=== PATIENT | male | born 1985 | race Native Hawaiian/Other Pacific Islander ===

== ENCOUNTER 2016-10-20 02:16 | Inpatient (IN) | payer OTHER ==
[2016-10-20 03:31] LABS: Hematocrit 49 % (42-52); Hemoglobin 16.7 g/dl (14.0-18.0); Mean Corpuscular HGB Conc 34 g/dl (31-36); Mean Corpuscular Hemoglobin 30 pg (27-31); Mean Corpuscular Volume 88 fL (80-94); Mean Platelet Volume 8 um3 (7.4-10.4); Red Blood Count 5.61 10^6/ul (4.0-5.4); Red Cell Distribution Width 12 % (10.5-15); White Blood Count 14.1 10^3/ul (3.5-10.8)
[2016-10-20 03:47] LABS: ALT 19 U/L (7-52); AST 30 U/L (13-39); Albumin 4.6 g/dL (3.2-5.2); Alkaline Phosphatase 62 U/L (34-104); Anion Gap 7 mmol/L (2-11); BUN/Creatinine Ratio 9.6 (8-20); Blood Urea Nitrogen 9 mg/dL (6-24); CO2 Carbon Dioxide 30 mmol/L (22-32); Calcium 9.4 mg/dL (8.6-10.3); Chloride 99 mmol/L (101-111); EGFR African American 118.9 (>60); EGFR Non-African American 92.4 (>60); Globulin 3.1 g/dL (2-4); Glucose 100 mg/dL (70-100); Potassium 3.9 mmol/L (3.5-5.0); Sodium 136 mmol/L (133-145); Total Protein 7.7 g/dL (6.4-8.9)
[2016-10-20 03:52] LABS: Acetaminophen < 15 mcg/mL; Alcohol < 10 mg/dL (<10); Salicylate < 2.50 mg/dL (<30)
[2016-10-20 04:02] LABS: TSH (Thyroid Stimulating Horm) 1.33 mcIU/mL (0.34-5.60)
[2016-10-20] MEDS ORDERED: Nicotine Inhaler* 10 MG AMP INH PRN ×2 (05:10→08:39)
[2016-10-20] MEDS ORDERED: Mouth Piece, Nicotine* 1 EACH CARTRIDGE INH PRN (05:11)
[2016-10-20] MEDS ORDERED: Nicotine Inhaler* 10 MG AMP ONE (05:15)
[2016-10-20] MEDS ORDERED: Mouth Piece, Nicotine* 1 EACH CARTRIDGE ONE (05:16)
[2016-10-20 05:31] LABS: Urine Bilirubin Negative (Negative); Urine Glucose Negative (Negative); Urine Nitrite Negative (Negative)
[2016-10-20 05:47] LABS: Benzodiazepine Urine Screen None Detected (None Detect)
--- NOTE | 2016-10-20 05:51 | ED ---
Giuseppe Martinez Rebecca, scribed for Jani Nicole MD on 10/20/16 at 0233 . Psychiatric Complaint - HPI Summary HPI Summary: Pt is a 31 y/o M who presents to ED with a CC of suicidal idealizations and depression. SI began gradually tonight and have been constant since onset. Current psychiatric sx aggravated by PTSD, alleviated by nothing. Denies any other sx, including any pain. Reports marijuana use today, denies any alcohol use. PMHx depression - History Of Current Complaint Chief Complaint: EDMentalHealth Time Seen by Provider: 10/20/16 02:26 Hx Obtained From: Patient Onset/Duration: Gradual Onset, Still Present Severity Initially: Mild Severity Currently: Mild Character: Depressed Aggravating Factor(s): Other - PTSD Alleviating Factor(s): Nothing Associated Signs And Symptoms: Positive: Negative Has Suicidal: Reports: Thoughts Ingestion History: Type/Name Of Drug - Marijuana - Allergies/Home Medications Allergies/Adverse Reactions: Allergies Allergy/AdvReac Type Severity Reaction Status Date / Time No Known Allergies Allergy Verified 10/20/16 02:28 PMH/Surg Hx/FS Hx/Imm Hx Cardiovascular History: Reports: Hx Hypertension Psychiatric History: Reports: Hx Depression, Hx Post Traumatic Stress Disorder, Other Psychiatric Issues/Disorders - Hx Insomnia Infectious Disease History: No Infectious Disease History: Denies: Traveled Outside the [place] in Last 30 Days - Family History Known Family History: Positive: Hypertension - Social History Alcohol Use: Weekly Substance Use Type: Reports: Marijuana Smoking Status (MU): Light Every Day Tobacco Smoker Review of Systems Negative: Arthralgia Positive: Depressed, Other - Suicidal idealizations All Other Systems Reviewed And Are Negative: Yes Physical Exam Triage Information Reviewed: Yes Vital Signs On Initial Exam: Initial Vitals Temp Pulse Resp BP Pulse Ox 98.3 F 95 18 159/100 98 10/20/16 02:27 10/20/16 02:27 10/20/16 02:27 10/20/16 02:27 10/20/16 02:27 Vital Signs Reviewed: Yes Appearance: Positive: Well-Appearing, No Pain Distress Skin: Positive: Warm, Skin Color Reflects Adequate Perfusion, Dry Eyes: Positive: EOMI, JOE ENT: Positive: Normal ENT inspection Neck: Positive: Supple, Nontender Respiratory/Lung Sounds: Positive: Clear to Auscultation, Breath Sounds Present Cardiovascular: Positive: RRR Musculoskeletal: Positive: Normal, Strength/ROM Intact Neurological: Positive: Normal, Sensory/Motor Intact, Alert, Oriented to Person Place, Time Psychiatric: Positive: Depressed Diagnostics - Vital Signs Vital Signs Temp Pulse Resp BP Pulse Ox 10/20/16 02:27 98.3 F 95 18 159/100 98 - Laboratory Lab Results: Lab Results 10/20/16 10/20/16 10/20/16 Range/Units 03:00 03:00 05:20 WBC 14.1 H (3.5-10.8) 10^3/ul RBC 5.61 H (4.0-5.4) 10^6/ul Hgb 16.7 (14.0-18.0) g/dl Hct 49 (42-52) % MCV 88 (80-94) fL MCH 30 (27-31) pg MCHC 34 (31-36) g/dl RDW 12 (10.5-15) % Plt Count 330 (150-450) 10^3/ul MPV 8 (7.4-10.4) um3 Neut % (Auto) 67.4 (38-83) % Lymph % (Auto) 19.2 L (25-47) % [place] % (Auto) 7.5 (1-9) % Eos % (Auto) 5.3 (0-6) % Baso % (Auto) 0.6 (0-2) % Absolute Neuts (auto) 9.5 H (1.5-7.7) 10^3/ul Absolute Lymphs (auto) 2.7 (1.0-4.8) 10^3/ul Absolute Monos (auto) 1.0 H (0-0.8) 10^3/ul Absolute Eos (auto) 0.8 H (0-0.6) 10^3/ul Absolute Basos (auto) 0.1 (0-0.2) 10^3/ul Absolute Nucleated RBC 0.01 10^3/ul Nucleated RBC % 0 Sodium 136 (133-145) mmol/L Potassium 3.9 (3.5-5.0) mmol/L Chloride 99 L (101-111) mmol/L Carbon Dioxide 30 (22-32) mmol/L Anion Gap 7 (2-11) mmol/L BUN 9 (6-24) mg/dL Creatinine 0.94 (0.67-1.17) mg/dL Est GFR ( Amer) 118.9 (>60) Est GFR (Non-Af Amer) 92.4 (>60) BUN/Creatinine Ratio 9.6 (8-20) Glucose 100 (70-100) mg/dL Calcium 9.4 (8.6-10.3) mg/dL Total Bilirubin 0.50 (0.2-1.0) mg/dL AST 30 (13-39) U/L ALT 19 (7-52) U/L Alkaline Phosphatase 62 (34-104) U/L Total Protein 7.7 (6.4-8.9) g/dL Albumin 4.6 (3.2-5.2) g/dL Globulin 3.1 (2-4) g/dL Albumin/Globulin Ratio 1.5 (1-3) TSH 1.33 (0.34-5.60) mcIU/mL Urine Color Yellow Urine Appearance Clear Urine pH 6.0 (5-9) Ur Specific [place] 1.014 (1.010-1.030) Urine Protein Negative (Negative) Urine Ketones Trace H (Negative) Urine Blood Negative (Negative) Urine Nitrate Negative (Negative) Urine Bilirubin Negative (Negative) Urine Urobilinogen Negative (Negative) Ur Leukocyte Esterase Negative (Negative) Urine Glucose Negative (Negative) Salicylates < 2.50 (<30) mg/dL Urine Opiates Screen (None Detect) Acetaminophen < 15 mcg/mL Ur Barbiturates Screen (None Detect) Ur Phencyclidine Scrn (None Detect) Ur Amphetamines Screen (None Detect) U Benzodiazepines Scrn (None Detect) Urine Cocaine Screen (None Detect) U Cannabinoids Screen (None Detect) Serum Alcohol < 10 (<10) mg/dL 10/20/16 Range/Units 05:20 WBC (3.5-10.8) 10^3/ul RBC (4.0-5.4) 10^6/ul Hgb (14.0-18.0) g/dl Hct (42-52) % MCV (80-94) fL MCH (27-31) pg MCHC (31-36) g/dl RDW (10.5-15) % Plt Count (150-450) 10^3/ul MPV (7.4-10.4) um3 Neut % (Auto) (38-83) % Lymph % (Auto) (25-47) % [place] % (Auto) (1-9) % Eos % (Auto) (0-6) % Baso % (Auto) (0-2) % Absolute Neuts (auto) (1.5-7.7) 10^3/ul Absolute Lymphs (auto) (1.0-4.8) 10^3/ul Absolute Monos (auto) (0-0.8) 10^3/ul Absolute Eos (auto) (0-0.6) 10^3/ul Absolute Basos (auto) (0-0.2) 10^3/ul Absolute Nucleated RBC 10^3/ul Nucleated RBC % Sodium (133-145) mmol/L Potassium (3.5-5.0) mmol/L Chloride (101-111) mmol/L Carbon Dioxide (22-32) mmol/L Anion Gap (2-11) mmol/L BUN (6-24) mg/dL Creatinine (0.67-1.17) mg/dL Est GFR ( Amer) (>60) Est GFR (Non-Af Amer) (>60) BUN/Creatinine Ratio (8-20) Glucose (70-100) mg/dL Calcium (8.6-10.3) mg/dL Total Bilirubin (0.2-1.0) mg/dL AST (13-39) U/L ALT (7-52) U/L Alkaline Phosphatase (34-104) U/L Total Protein (6.4-8.9) g/dL Albumin (3.2-5.2) g/dL Globulin (2-4) g/dL Albumin/Globulin Ratio (1-3) TSH (0.34-5.60) mcIU/mL Urine Color Urine Appearance Urine pH (5-9) Ur Specific [place] (1.010-1.030) Urine Protein (Negative) Urine Ketones (Negative) Urine Blood (Negative) Urine Nitrate (Negative) Urine Bilirubin (Negative) Urine Urobilinogen (Negative) Ur Leukocyte Esterase (Negative) Urine Glucose (Negative) Salicylates (<30) mg/dL Urine Opiates Screen None detected (None Detect) Acetaminophen mcg/mL Ur Barbiturates Screen None detected (None Detect) Ur Phencyclidine Scrn None detected (None Detect) Ur Amphetamines Screen None detected (None Detect) U Benzodiazepines Scrn None detected (None Detect) Urine Cocaine Screen None detected (None Detect) U Cannabinoids Screen Presumptive positive H (None Detect) Serum Alcohol (<10) mg/dL Result Diagrams: 10/20/16 03:00 10/20/16 03:00 Lab Statement: Any lab studies that have been ordered have been reviewed, and results considered in the medical decision making process. Re-Evaluation - Re-Evaluation First Eval Re-Evaluation Time: 05:10 Change: Unchanged Course/Dx - Course Course Of Treatment: Pt is medically cleared for MHE at 0309. Pt will be admitted at 0550. Assessment/Plan: ADMIT MHU STABLE - Differential Dx/Clinical Impression Provider Diagnosis: Mental health problem Discharge - Discharge Plan Condition: Stable [place] [place]: No Primary Care Phys,NOPCP [Primary Care Provider] - The documentation as recorded by the Giuseppe shipley Rebecca accurately reflects the service I personally performed and the decisions made by me, Jani Nicole MD.
[2016-10-20] MEDS ORDERED: Mouth Piece, Nicotine* 1 EACH CARTRIDGE INH ONE (07:00)
[2016-10-20] MEDS ORDERED: Al Hydrox/Mg Hydrox/Simet LIQ* 30 ML UDC PO PRN (08:39)
[2016-10-20] MEDS ORDERED: Acetaminophen TAB* 325 MG PO PRN (08:39)
[2016-10-20] MEDS ORDERED: Mouth Piece, Nicotine* 1 EACH CARTRIDGE INH SCH (08:39)
[2016-10-20] MEDS: Nicotine GUM* 2 MG PO PRN (09:05)
[2016-10-20] MEDS: Vitamin THERAPEUTIC TAB PO SCH (09:05)
[2016-10-20] MEDS: Nicotine PATCH 21 MG/24 HR* PATCH TRANSDERM SCH (09:06)
--- NOTE | 2016-10-20 14:08 | ADMNOTE ---
Identification - Identify Employment Status: Employed Hx Psychiatric Hospitalization: Yes - 5 prior hospitalizations Arrived to Hospital Via: Ambulatory History - Objective HPI: 31 y/o [place] unknown to this facility brought self in seeking admission due to overwhelming depression and sadness for few weeks. He has a h/o 5 hospitalizations for the same reason. Says he feels sad, cries a lot, tired, unmotivated, helpless and guilty. Thought about suicide when severely depressed in the past. Denies current suicidal or homicidal thoughts. Also denies hallucinations/or paranoia. His 37y/o sister who he was close from cancer in recent past. after 7 y/o marriage. Has a 4 y/o son. Past Medical History: None Lab Results: Unremarkable. Radiology Results: None ordered. Exam Appearance: Healthy Appearing Hygiene: Normal Grooming: Fairly Well Kept Psychomotor Activities: Normal Exhibits Abnormal Movement: No Attitude and Relatedness: Appropriate Eye Contact: Poor - Speech Quality: Unpressured Latencies: Normal Quantity: Appropriate Patient's Decription of Mood: "Sad" Observed Affect: Depressed Affect Consistent with: Dysphoria Patient's Thought Process: Coherent, Goal Directed Thought Content: No Passive Wish, No Suicidal Planning, No Homicidal Ideation, No Paranoid Ideation Experiencing Hallucinations: No, Sensorium is Clear Type of Hallucinations: Visual: No, Auditory: No, Command: No Level of Consciousness: Alert Orientation: Yes Intact, Yes Orientated to Time, Yes Orientated to Place, Yes Orientated to Person Impulse Control: Intact Insight and Judgement: Fair Impression - Impression Clinical Impression: 31 y/o WM with known h/o 5 hospitalizations presents in the context of worsening of depressive symptoms for the last few weeks in the context of treatment noncomplience anf occational drinking and smoking Cannabis. - [place] Mental Illness: MDD, recurrent, severe w/o psychosis. R/o substance induced mood d/o - [place] Medical Illness: None Plan - Treatment Plan Continued Medication Management: Start Medication Medications: Current Medications Acetaminophen (Tylenol Tab*) 650 mg PO Q4H PRN PRN Reason: PAIN or TEMP > 101 F Al Hydrox/Mg Hydrox/Simethicone (Maalox Plus*) 30 ml PO Q4H PRN PRN Reason: INDIGESTION Device (Nicotine Mouth Piece*) 1 each INH .CARTRIDGE CHERI Multivitamins (Theragran Tab*) 1 tab PO DAILY [facility] Last Admin: 10/20/16 09:05 Dose: 1 tab Nicotine (Nicotine Inhaler*) 10 mg INH Q2H PRN PRN Reason: CRAVING Last Admin: 10/20/16 05:17 Dose: 10 mg Nicotine (Nicotine Inhaler*) 10 mg INH Q2H PRN PRN Reason: CRAVING Nicotine (Nicotine Patch 21 Mg/24 Hr*) 1 patch TRANSDERM DAILY [facility] Last Admin: 10/20/16 09:06 Dose: Not Given Nicotine Polacrilex (Nicotine Gum*) 2 mg PO Q2H PRN PRN Reason: CRAVING Last Admin: 10/20/16 09:05 Dose: 2 mg Pharmacy Profile Note (Nicotine Patch Removal Note*) 1 note PATCH OFF 2099 [facility] - Discharge Plan Discharge Plan: Outpatient Follow Up Outpatient Program: [facility]
[2016-10-20] MEDS: Sertraline* 25 MG TAB PO SCH (17:07)
--- NOTE | 2016-10-20 19:58 | HP ---
HISTORY AND PHYSICAL: DATE OF ADMISSION: 10/20/16 IDENTIFYING DATA: Jani is a 31-year-old , employed male, who brought himself to the emergency department asking for admission due to worsening of his depression. CHIEF COMPLAINT: "I am just going down the same path, which made me suicidal in the past." HISTORY OF PRESENT ILLNESS: Jani who likes to be called Corona, reports today that for the last few weeks his depressive symptoms and anxiety has been worsening progressively to a point that he did not feel safe at home and decided to check himself in. This is one of his 6th psychiatric hospitalizations on psychiatric floor and the first one at [facility]. Corona reports that he has been feeling sad all the time, not enjoying anything in his life anymore, worried all the time about everything in his life including of his 37-year-old sister in recent past, also about his mother who left the [facility] to go to [place] to live with his niece. He also worries about too many other things that he is unwilling to talk about at this time. He feels tired, unmotivated, helpless and guilty. However, he was not able to explain why he feels guilty. He notes that in the past when he felt that way, he thought about suicide. There were times that when his depression was deep and down in the dumps. He heard stuff that was unusual for him but he would not characterize those as auditory or visual hallucinations. His doctors in the past tried Abilify to control those experiences. He did not like Abilify or any kind of antipsychotics at that time. PAST PSYCHIATRIC HISTORY: As mentioned in HPI, he was hospitalized 5 times prior to this hospitalization in different hospitals including [facility]. He reports of trying different psychotropic medications including Abilify in the past. He is not on any medications at this time, does not have any providers for his mental health or physical health. PAST MEDICAL HISTORY: Unremarkable. ALLERGIES: No known drug allergies. FAMILY HISTORY: He had a sister who was 4 years older than him and she of some unknown cancer in recent past. His parents are . Father lives somewhere in [place] and mother lives in [place]. He denies any family history of mental illness. PERSONAL AND SOCIAL HISTORY: Corona reports that he has a bachelors in accounting and is currently employed in [employer]. He lives with a housemate and happy over where he lives. He was for 7 years and has a 4-year-old son. Now . He pays child support and does not show much interest about his son. He was an active member in [employer], honorably discharged as a master sergeant. He does have VA benefits; however, he is reluctant to use them. 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 Denies any symptoms reminiscent of PTSD. No legal problems other than parking tickets. PHYSICAL EXAMINATION Physical exam was offered, he declined saying that he is perfectly healthy. I have reviewed his physical done in the emergency department, which is unremarkable. GENERAL: He does not appear to be in any kind of physical distress at this time. VITAL SIGNS: This morning, his vitals show a temperature of 98.3, pulse rate 95 , respiratory rate 18, O2 sat 98%, blood pressure 159/100; this was at 2 a.m. in the morning. At 9 a.m. in the morning, temperature 98.2, pulse rate 71, respiratory rate 16, blood pressure 144/79. MENTAL STATUS EXAMINATION: Coroan is an average height, average weight healthy- appearing young male, who is alert and oriented to time, place and person. His personal hygiene and grooming appears to be within normal limits. His speech is normal in all spheres. Makes poor eye contact, mostly tearful during the interview. He describes his mood as depressed and sad. His observed affect appears to be dysphoric and tearful. Intelligence appears to be average as evidenced by his vocabulary and fund of knowledge and educational background. Thought processes are logical and goal-directed. Thought content is devoid of any delusions or obsessions. Denies any current suicidal or homicidal thoughts. Memory function appears to be normal in all spheres. Insight and judgment intact. LABORATORY DATA: Included CBC with differential, chemistry, urinalysis and urine tox screen and serum tox screen. WBC count 14.1, hemoglobin 16.7, hematocrit 49, platelet count 330; differential count shows a lymphocyte percentage of 19.2, absolute neutrophil count 9.5 and rest of the reports are unremarkable. Chemistry shows sodium of 136, potassium 3.9, chloride 99, carbon dioxide 30, glucose 100, GFR (-Sierra [place]an) 118.9, GFR (non-- [place]) 92.4. Rest of the reports within normal limits. Urinalysis is unremarkable with trace ketone. Toxicology shows a salicylate level less than 2.5, acetaminophen level less than 15, serum alcohol less than 10. Urine cannabinoids screen shows a positive report. SUMMARY: This is a 31-year-old honorably discharged [employer] , who brought himself to the emergency department asking for help for severe depression. He has been depressed off and on sporadically for some time and is not on any kind of active treatment. He has a history of smoking marijuana on a daily basis and drinking a couple of times every week a few drinks each time. MENTAL HEALTH DIAGNOSIS: Depressive disorder, NOS; rule out major depressive disorder; rule out substance-induced mood disorder. PHYSICAL HEALTH DIAGNOSIS: None. TREATMENT PLANS: Corona will remain hospitalized for his safety, diagnostic clarification, as well as treatment if needed. While admitted, his code status will remain active and full. Supportive, milieu, individual, and group therapy will be offered. Different psychotherapeutic and psychopharmacological options were offered with the risks, benefits and alternatives. Corona is reluctant to try; however, finally he decided to try Zoloft and I am going to prescribe him 25 mg of Zoloft at bedtime beginning tonight. If he can tolerate, his assigned attending can adjust the doses as he tolerates, and I will defer rest of the treatment to his attending on the unit. [id number]/CPS #: [id number] MTDD
[2016-10-20] MEDS: Nicotine Patch Removal NOTE PATCH OFF SCH (20:28)
[2016-10-21] MEDS: Sertraline* 25 MG TAB PO SCH (09:12)
[2016-10-21] MEDS: Vitamin THERAPEUTIC TAB PO SCH (09:12)
[2016-10-21] MEDS: Nicotine GUM* 2 MG PO PRN ×2 (10:16→15:08)
[2016-10-21] MEDS: Nicotine PATCH 21 MG/24 HR* PATCH TRANSDERM SCH (14:25)
--- NOTE | 2016-10-21 15:00 | PN ---
Subjective - Subjective Service Type: 87100 Hosp care 15 min low complexity Subjective: Pepito reports feeling safe for discharge home, although he refuses a trial of an antidepressant. Oddly, though pleasant throughout, he was also unpleasantly flatulent throughout, at one point loudly. Objective - Appearance Appearance: Well Developed/Nourished Dysmorphic Features: No Hygiene: Normal Grooming: Well Kept - Behavior Psychomotor Activities: Normal Exhibits Abnormal Movement: No - Attitude and Relatedness Attitude and Relatedness: Superficially Cooperative Eye Contact: Fair - Speech Quality: Unpressured Latencies: Normal Quantity: Appropriate - Mood Patient's Decription of Mood: "Fine" - Affect Observed Affect: Fair Affect Consistent with: Euthymia - Thought Process Patient's Thought Process: Coherent, Goal Directed Thought Content: No Passive Wish, No Suicidal Planning, No Homicidal Ideation, No Paranoid Ideation - Sensorium Experiencing Hallucinations: No, Sensorium is Clear Type of Hallucinations: Visual: No, Auditory: No, Command: No - Level of Consciousness Level of Consciousness: Alert Orientation: Yes Intact, Yes Orientated to Time, Yes Orientated to Place, Yes Orientated to Person - Impulse Control Impulse Control: Intact - Insight and Judgement Insight and Judgement: Poor - Group Participation Particating in Group Activities: Yes Group Participation Comments: but few - Medication Management Medication Management Adherence: Partial - refusing Zoloft Assessment - Assessment Merits Inpatient Hospitalization: For Stabilization, Consolidate Improvements, For Discharge Planning Inpatient DSM-IV Dx: Depressive disorder not otherwise specified, r/o MDD, r/o substance induced mood disorder Clinical Impression: Mr Grullon has been admitted for severe depression, but without active safety concerns. He refuses a trial of antidepressant. He seeks discharge now. He is agreeable to referral to [facility]. He also may benefit from cessation of marijuana and alcohol misuse. Plan - Plan Treatment Plan: Name: PEPITO GRULLON Birthdate: 1985 [id number] Prepare for discharge tomorrow to f/u at [facility]. Continue to offer meds. Monitor MS. Medications: Current Medications Acetaminophen (Tylenol Tab*) 650 mg PO Q4H PRN PRN Reason: PAIN or TEMP > 101 F Al Hydrox/Mg Hydrox/Simethicone (Maalox Plus*) 30 ml PO Q4H PRN PRN Reason: INDIGESTION Device (Nicotine Mouth Piece*) 1 each INH .CARTRIDGE CHERI Multivitamins (Theragran Tab*) 1 tab PO DAILY [facility] Last Admin: 10/21/16 09:12 Dose: 1 tab Nicotine (Nicotine Inhaler*) 10 mg INH Q2H PRN PRN Reason: CRAVING Last Admin: 10/20/16 05:17 Dose: 10 mg Nicotine (Nicotine Inhaler*) 10 mg INH Q2H PRN PRN Reason: CRAVING Nicotine (Nicotine Patch 21 Mg/24 Hr*) 1 patch TRANSDERM DAILY [facility] Last Admin: 10/21/16 14:25 Dose: Not Given Nicotine Polacrilex (Nicotine Gum*) 2 mg PO Q2H PRN PRN Reason: CRAVING Last Admin: 10/21/16 10:16 Dose: 2 mg Pharmacy Profile Note (Nicotine Patch Removal Note*) 1 note PATCH OFF 2100 [facility] Last Admin: 10/20/16 20:28 Dose: Not Given Sertraline HCl (Zoloft*) 25 mg PO DAILY [facility] Last Admin: 10/21/16 09:12 Dose: 25 mg - Discharge Plan Discharge Plan: Outpatient Follow Up Outpatient Program: [facility]
[2016-10-21] MEDS: Nicotine Patch Removal NOTE PATCH OFF SCH (20:07)
[2016-10-21] MEDS: chlorproMAZINE TAB* 25 MG ONE ×2 (22:11→22:13)
[2016-10-21] MEDS: chlorproMAZINE TAB* 100 MG PO PRN (22:13)
[2016-10-22] MEDS: Nicotine PATCH 21 MG/24 HR* PATCH TRANSDERM SCH (07:29)
[2016-10-22] MEDS: Sertraline* 25 MG TAB PO SCH (07:29)
[2016-10-22 07:32] VITALS: BP 124/74
[2016-10-22] MEDS: Vitamin THERAPEUTIC TAB PO SCH (07:32)
[2016-10-22] MEDS: Nicotine GUM* 2 MG PO PRN ×3 (07:32→13:15)
[2016-10-22] MEDS: chlorproMAZINE TAB* 100 MG PO PRN ×2 (07:32→13:15)
--- NOTE | 2016-10-22 16:41 | CONS ---
PSYCHOLOGICAL REPORT: DATE: 10/22/2016. REASON FOR REFERRAL: Jani was referred for psychological testing in order to help with diagnostic interest with concerns regarding possible psychotic range thought disorder. Evaluation was also conducted as a means to assist in assessing lethality concerns as Jani describes having recurrent suicidal thoughts of late and this is his now sixth psychiatric inpatient admission. TEST ADMINISTERED: Corona completed the [place] Multiphasic Personality Inventory - 2 (MMPI - 2). He was given individual feedback regarding testing results shortly after completion. BEHAVIORAL OBSERVATIONS: Jani currently presents with fair affect that varies appropriately with conversation. 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 He describes the work as being fairly easy for him and he seems to enjoy his work. He describes daily marijuana use, often smoking up to 3 or 4 times daily including in the mornings. He also describes using alcohol, although he does not report problematic use, at least in his personal perception thereof. He describes drinking a few times a week, but does not apparently experience any dysfunction in regards to work function. He was for 7 years and has a 4 -year-old son with both his ex- and son living in [place], [place]. He describes having regular contact with them, but he reports his access varies on her mood in terms being able to spend time with his son. He reports providing child support. He also was a sergeant in the for 6 years. He describes his experience overall as being "fun" and denied any residual symptomatology consistent with post- traumatic stress problems, as he was not in active combat. He describes hoping to settle in the [facility] and is keen to establish outpatient treatment at this point in time in order to establish access to medications and in providing individual supportive psychotherapy. He impresses as having good insight regarding the importance of engaging in followup care and in being compliant with recommended medications. TEST RESULTS: Jani provides a moderately distressed profile on this administration of the MMPI-2 having elevated the FB scale in a moderate fashion (T=85). He also scores very lowly on the emotional coping, self-esteem scales ( T=35 and 30 respectively). He subsequently elevates 8 of the clinical indices with more profound elevations occurring on the psychoticism scales including paranoia, psychasthenia, and schizophrenia (T=85 to 75 respectively). Of particular interest, he also elevates the hypomania scale to a minimal degree (T =65). He also elevates the neurotic triad (depression=72). Persons who elevate the neurotic triad tend to have difficulty in regards to insight in terms of how to manage negative emotions, instead using propensity towards utilizing repression as a primary emotional coping defense and who may exhibit physical duress consistent with recurrent headaches or other endorsement of physical elements when under emotional duress. Of particular clinical concern is an elevation on hypomania scale, as Jani describes having periods of insomnia characterized by encroaching cognitive symptoms, mostly consistent with paranoia. He describes as though feeling people are watching him or evaluating him which often leads to increased alcohol and marijuana use which in the end tends to exacerbate depressive symptomatology. He acknowledges this as a recurrent historical pattern for him, but appears not to have been treated for mood instability. He describes having utilized an atypical antipsychotic prior, but how that left him with cognitive dulling and feeling lethargic. Since he has an aversion to utilizing medications other than benzodiazepines and /or antidepressants, further treatment should continue to evaluate for possible bipolar- 2 symptomatology which may describe his apparent escalating historical problems which tend towards psychotic range disturbance characterized by paranoia. Discussion with Jani addressed access to different outpatient systems. Presently, he is inclined to attend treatment through [facility] rather than continue to pursue treatments through the [place], although he remains open [facility]. Currently, he impresses as being focused on obtaining discharge and indeed is future oriented , describing his interest in returning to work and returning to the comfort of his home. Ongoing treatment should further assess and try to effectively treat those poor self-esteem as this appears to be an enduring feature of his difficulties. Corona describes having feelings of inferiority since he was a young child and that these perceptions are recurrent when he is not well. Other interventions may hopefully more productively address his lifestyle choices including daily use of marijuana in hopes that he can draw better conclusions about how this may destabilize his thought processes and subsequent emotional decompensation. Major depressive disorder, recurrent, with psychotic features impress as current diagnosis with rule out being that of a bipolar-2 disorder. [id number]/[facility] #: [id number] ALEE
--- NOTE | 2016-10-22 16:48 | DS ---
Subjective - Subjective Service Types: [id number] [facility] Day Mgmt simple under 30 min Discharge Date: 10/22/16 Subjective: Jani reports today feeling safe and ready for discharge. He does not want to start a regular antidepressant medication, but does ask to have available a few doses of the thorazine that he took while here for agitation/anxiety. He denies any dangerous intent or plan at any time during this admission, saying now that he only said he had SI in order to be admitted and get care immediately. He denies any hallucinations and shows no signs of delusions. 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 Objective - Appearance Appearance: Healthy Appearing Dysmorphic Features: No Hygiene: Normal Grooming: Well Kept - Behavior Psychomotor Activities: Normal Exhibits Abnormal Movement: No - Attitude and Relatedness Attitude and Relatedness: Cooperative Eye Contact: Good - Speech Quality: Unpressured Latencies: Normal Quantity: Appropriate - Mood Patient's Decription of Mood: "Good" - Affect Observed Affect: Good Affect Consistent with: Euthymia - Thought Process Patient's Thought Process: Coherent, Goal Directed Thought Content: Yes Paranoid Ideation - as hypervigilance related to [employer] training, No Passive Wish, No Suicidal Planning, No Homicidal Ideation - Sensorium Experiencing Hallucinations: No, Sensorium is Clear Type of Hallucinations: Visual: No, Auditory: No, Command: No - Level of Consciousness Level of Consciousness: Alert Orientation: Yes Intact, Yes Orientated to Time, Yes Orientated to Place, Yes Orientated to Person - Impulse Control Impulse Control: Intact - Insight and Judgement Insight and Judgement: Fair - Group Participation Particating in Group Activities: No - Medication Management Medication Management Adherence: Partial Treatment Course & Assessment Clinical Course & Impression: Mr Lara has been admitted for severe depression, but without active safety concerns. He refuses a trial of antidepressant. He seeks discharge now. He is agreeable to referral to [facility]. He also may benefit from cessation of marijuana and alcohol misuse. 1.4.17 Per Mr Lara's report of having malingered SI in order to gain admission , and never having actually had intent toward suicide, only passing thoughts, he is assessed as at no acute risk of harm to self. He also denies any intent or plan to harm others. He denies any psychotic experience, only hypervigilance. MMPI suggested with elevated hypomania scale the possibility of bipolar disorder, but his report to me is that he has not had a constellation of manic symptoms in the past sufficient to support a diagnosis of bipolar disorder. His friend Yasmin met with me today when she was visiting Corona. She says she has no concerns for his safety if discharged. Corona refused our request to speak with his father because he did not want to bother him because he is old and might be too negatively affected by hearing about his son' s problems. Corona did not engage in groups. He did not try the antidepressant that was ordered for him. He did report good effect of the thorazine that was ordered for his complaint of agitation and anxiety last night by the on-call doctor, and did ask to continue that med. Mr Lara is cleared for discharge. He is assessed as at no acutely increased risk of harm to self or others and capable of adequate self-care to avoid harm. Although he has refused antidepressant trial and did not attend groups here, he was pleasant and in behavioral control throughout. MMPI did not indicate any signs of dangerousness, which matched with Dr Crandall's impression of him as safe for discharge as well. He does say that he is committed to aftercare at [facility], where he will have an intake on Thursday. Merits Inpatient Hospitalization: No Clear for Discharge: Adequate Clinical Respons, Acceptable Safety Profile, Low Utility of Inpt Care Inpatient DSM-IV Dx: Depressive disorder not otherwise specified, r/o MDD, r/o substance induced mood disorder - Lejunior I Mental Illness: MDD, recurrent, severe w/o psychosis. R/o substance induced mood d/o - Lejunior III Medical Illness: None - Lejunior IV Stressors: of sister, mother leaving country Family: contact with but limited support from parents Primary Support Group: roommate/friend - Lejunior V [id number]: 63 Estimate of Highest-Past Year: 68 Discharge Planning - Discharge Planning Discharge Plan: Outpatient Follow Up Outpatient Program: [facility] Recommendations for Continuing Care: Medication Management, Psychotherapy Medications: Chlorpromazine HCl (Thorazine Tab*) 100 mg PO daily as needed, max daily dose 100 mg PRN Reason: AGITATION/anxiety Last Admin: 10/22/16 13:15 Dose: 100 mg Refused antidepressant. Refused nicotine replacement or other smoking cessation intervention, as he plans to continue smoking against my recommendation. Discharge Planning: Prescriptions provided for discharge [x] Yes [] No Follow up care details as per social work arrangements. Patient response to discharge plan: [x] eager for discharge [x] agreeable with discharge plan [] ambivalent about discharge [] disagrees with discharge today
== END 2016-10-22 18:20 | disposition home or self-care (01) | DRG 885 ==
LOC: ED 02:16 → BSU 07:34
PROVIDERS: ADMIT Psychiatry & Neurology Psychiatry; ATTEND Psychiatry & Neurology Psychiatry
DX: F33.2 Major depressive disorder, recurrent severe without psychotic features (principal); F18.1 Inhalant abuse
CPT/HCPCS: 36415; 80053; 80307; 80320; 80329; 81003; 84443; 85025; 96102; 99222; 99231; 99238; 99285; 99406; A9270-GY; G0480